=== PATIENT | female | born 1930 | race Caucasian/White ===

== ENCOUNTER 2016-08-14 09:23 | Emergency (ER) | payer OTHER ==
[~2016-08-14] VITALS: Ht 160 cm; Wt 61.2 kg
[~2016-08-14 09:23] MED LIST: ACIDOPHILUS1 CAP PO; AMOXIL500 MG PO; APAP500 MG PO; ATENOLOL25 M1 PO; AZO CRANBERRY450 MG PO; CHILDREN'S ASPI81 M1 PO; CIPRO 500MG TA500 MG PO; CIPRO500 M1 PO; IMIPRAMINE HCL25 MG PO; KEFLEX 250MG C250 MG PO; LISINOPRIL10 MG PO; MULTIVITAMIN1 TAB PO; NAPROXEN375 M2 PO; NITROFURANTOIN50 MG PO; ONDANSETRON HCL4 MG PO; PRINIVIL 5MG5 MG PO; VITAB121000 PO; VITAMIN C500 M3 PO; VITAMIN D32000 I1 PO; VOLTAREN100 GM TOP
--- NOTE | 2016-08-14 09:31 | ED GENERAL ADULT ---
History of Present Illness General Chief Complaint: Fall Stated Complaint: BIBA FALL Source: patient, family Exam Limitations: patient's age, dementia, poor historian, physical impairment Vital Signs & Intake/Output Vital Signs & Intake/Output ED Intake and Output 08/15 0000 08/14 1200 Intake Total 240 Output Total Balance 240 Intake, Oral 240 Patient 135 lb Weight Allergies Coded Allergies: tramadol (HALLUCINATIONS 08/14/16) Reconcile Medications Acetaminophen (Apap) 500 MG TABLET 1 TAB PO Q4H PRN PAIN (Reported) Acetaminophen (Tylenol) 325 MG TABLET 2 TAB PO Q6-8P PRN PAIN (Reported) Alendronate Sodium (Fosamax) 70 MG TABLET 1 TAB PO QTUES BONE (Reported) in the morning, at least 30 minutes before the first food, beverage, or medication of the day Ascorbic Acid (Vitamin C) 500 MG TAB 1 TAB PO DAILY SUPPLEMENT (Reported) Aspirin (Children's Aspirin) 81 MG TAB.CHEW 1 TAB PO DAILY HEART HEALTH ( Reported) Atenolol 25 MG TABLET 1 TAB PO DAILY HTN (Reported) CHOLECALCIFEROL (VITAMIN D3) (Vitamin D-3) 2,000 UNIT CAPSULE 1 SGL PO DAILY SUPPLEMENT (Reported) CRANBERRY CONC/C/BACILL COAG (Azo Cranberry Tablet) 250 MG-30 MG-50 MILLION CELL TABLET 1 CAP PO DAILY SUPPLEMENT (Reported) Cyanocobalamin (Vitamin B-12) 1,000 MCG TAB 1 TAB PO DAILY DEMENTIA Diclofenac Sodium (Voltaren) 1 % GEL..GRAM. 1 GM TOP 3XD-4XDAILY PRN KNEES/ SHOULDER PAIN (Reported) apply to affected area(s) Furosemide 20 MG TABLET 1 TAB PO DAILY WATER PILL (Reported) Lactobacillus Acidophilus (Acidophilus) (Unknown Strength) CAP (Unknown Dose) PO DAILY SUPPLEMENT (Reported) Lidocaine (Lidoderm) 5 % ADH..PATCH 1 PAT TOP DAILY PAIN (Reported) may wear up to 12 hours Loperamide HCl (Loperamide) 2 MG TABLET 1 CAP PO 4XDP PRN GI (Reported) Moxifloxacin HCl (Avelox) 400 MG TABLET 1 TAB PO DAILY BRONCHITIS Multivitamin (Multiple Vitamins) 1 EACH TABLET 1 TAB PO DAILY SUPPLEMENT ( Reported) Ondansetron HCl 4 MG TABLET 1 TAB PO Q8P PRN NAUSEA/VOMITING (Reported) Potassium Chloride (Klor-Con 10) 10 MEQ TABLET.ER 1 TAB PO DAILY SUPPLEMENT ( Reported) Triamcinolone Acetonide 0.025 % CREAM..G. 1 MIGDALIA TOP BID UNKNOWN (Reported) apply to affected area(s) Triage Nurses Notes Reviewed? yes Onset: Abrupt Duration: hour(s): Timing: recent history HPI: 08/14/16 10:12 AM 86-year-old female presents to the emergency department complaining of difficulty breathing. According to the assisted care staff she's been having trouble breathing over the past 24 hours. No fever. She has a past medical history of dementia and hypertension. Her daughter is at the bedside. She is pleasantly confused in no acute distress. The onset of the symptoms were abrupt , the duration has been approximately the last 12 hours, the severity is significant as her symptoms required to come to the emergency department for care. On physical exam she has bilateral expiratory wheezes. Decreased breath sounds at the bases. She also has some tenderness and mild swelling to the lower extremities Past History Medical History Any Pertinent Medical History? 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 . FATHER (bleeding ulcers). . Hx Contributory? No Review of Systems Review of Systems Constitutional: Denies: fever. EENTM: Reports: see HPI. Respiratory: Reports: cough. Cardiovascular: Denies: chest pain. GI: Reports: see HPI. Genitourinary: Reports: see HPI. Musculoskeletal: Reports: back pain. Skin: Denies: rash. Neurological/Psychological: Denies: headache. Hematologic/Endocrine: Reports: no symptoms. Physical Exam Physical Exam General Appearance: alert, awake, anxious, mild distress Head: atraumatic Eyes: Bilateral: normal appearance, PERRL, EOMI. Ears, Nose, Throat: normal pharynx, normal ENT inspection Neck: normal inspection, limited range of motion Respiratory: wheezing Cardiovascular: regular rate/rhythm Peripheral Pulses: 4+ radial (R), 4+ radial (L) Gastrointestinal: non-tender Back: decreased range of motion Extremities: pedal edema Neurologic/Psych: awake, alert Skin: intact, normal color, warm/dry Core Measures ACS in differential dx? No CVA/TIA Diagnosis: No Severe Sepsis Present: No Septic Shock Present: No Progress Differential Diagnoses I considered the following diagnoses in my evaluation of the patient: [Pneumonia , COPD, asthma, CHF, pulmonary embolism] Plan of Care: Orders Procedure Date/time Status BLOOD CULTURE 08/14 100 Active TROPONIN LEVEL 08/14 100 Complete COMPREHENSIVE METABOLIC PANEL 08/14 100 Complete CBC WITHOUT DIFFERENTIAL 08/14 1002 Complete EKG 08/14 100 Active Laboratory Tests 08/14/16 1000: Anion Gap 10, Estimated GFR > 60, BUN/Creatinine Ratio 22.9, Glucose 113 H, Calcium 9.0, Total Bilirubin 0.8, AST 44 H, ALT 33, Alkaline Phosphatase 73, Troponin I < 0.01, Total Protein 7.3, Albumin 3.7, Globulin 3.6, Albumin/ Globulin Ratio 1.0 L, CBC w Diff NO MAN DIFF REQ, RBC 4.61, MCV 92.3, MCH 30.9, RDW 13.4, MPV 10.3, Gran % 48.8, Lymphocytes % 29.9, Monocytes % 13.9 H, Eosinophils % 6.9 H, Basophils % 0.5, Absolute Granulocytes 2.5, Absolute Lymphocytes 1.5, Absolute Monocytes 0.7 H, Absolute Eosinophils 0.3, Absolute Basophils 0, PUBS MCHC 33.5 Microbiology 08/14 100 BLOOD: Blood Culture - ORD 08/14 1000 BLOOD: Blood Culture - RECD Initial ED EKG: NSR Prior EKG: unchanged Departure Departure Disposition: STILL A PATIENT Condition: Stable Clinical Impression Primary Impression: Bronchitis Referrals: GLENN PATEL,ELVIS Dos Santos (PCP/Family) Referred to [facility] as new patient No Departure Forms: Customer Survey General Discharge Information Prescriptions: Current Visit Scripts Moxifloxacin HCl (Avelox) 1 TAB PO DAILY #4 TAB Comments The patient was treated with albuterol and Atrovent nebulizers She was comfortable on reevaluation Chest x-ray was negative for pneumonia, results shown below PATIENT: JORGE L ALLRED PRESENT AGE: 86 PATIENT ACCOUNT NO: [id number] : [birth year] LOCATION: [facility] ORDERING PHYSICIAN: BENTLEY MOMIN DO SERVICE DATE: 08/14/16 EXAM TYPE: RAD - XRY-PORTABLE CHEST XRAY EXAMINATION: XR PORTABLE CHEST CLINICAL INFORMATION: Shortness of breath and cough. Evaluate for pneumonia. COMPARISON: CXR from 11/29/2014 and 12/18/2014 TECHNIQUE: Portable view of the chest was obtained. FINDINGS: Patient is slightly rotated to the right and lungs are hypoinflated. No evidence of pulmonary edema, focal consolidation or pleural effusion. Cardiac silhouette is borderline enlarged. There is a tortuous, ectatic appearing atherosclerotic aorta. Bones appear diffusely osteopenic. There are multiple old right posterolateral rib fractures. Multilevel disc degeneration with osteophyte formation of the thoracic spine. IMPRESSION: No evidence of pneumonia or pleural effusion. DICTATED BY: ZHENG TRAN MD DATE/TIME DICTATED:08/14/161331 NUT FORMER:KAY DATE/TIME TRANSCRIBED:08/14/161331 CONFIDENTIAL, DO NOT COPY WITHOUT APPROPRIATE AUTHORIZATION. <Electronically signed in Other Vendor System> SIGNED BY: ZHENG TRAN MD 08/14/16 8902 She was discharged on Avelox and will follow-up with her doctor this week Critical Care Note Critical Care Note Critical Care Time: non-applicable
[2016-08-14] MEDS ORDERED: FOSAMAX70 M1 PO (10:11)
[2016-08-14] MEDS ORDERED: LOPERAMIDE2 M1 PO (10:12)
[2016-08-14] MEDS ORDERED: KLOR-CON 1010 ME1 PO (10:13)
[2016-08-14] MEDS ORDERED: FUROSEMIDE20 M1 PO (10:13)
[2016-08-14] MEDS ORDERED: TRIAMCINOLONE A15 GM TOP (10:14)
[2016-08-14] MEDS ORDERED: LIDODERM1 EACH TOP (10:15)
[2016-08-14] MEDS ORDERED: TYLENOL325 M1 PO (10:15)
[2016-08-14 10:20] LABS: ABSOLUTE BASOPHIL COUNT 0 /CUMM (0.0-0.2); ABSOLUTE EOSINOPHIL COUNT 0.3 /CUMM (0.0-0.7); ABSOLUTE GRANULOCYTE CT 2.5 /CUMM (1.4-6.5); ABSOLUTE LYMPH COUNT 1.5 /CUMM (1.2-3.4); ABSOLUTE MONOCYTE COUNT 0.7 /CUMM (0.10-0.60); BASOPHIL % 0.5 % (0.0-2.0); EOSINOPHIL % 6.9 % (0-5); GRANULOCYTE % 48.8 % (42.2-75.2); HEMATOCRIT 42.5 % (37-47); MEAN CORPUSCULAR HGB 30.9 PG (27.0-31.0); MEAN CORPUSCULAR HGB CONC 33.5 G/DL (33.0-37.0); MEAN CORPUSCULAR VOLUME 92.3 FL (81.0-99.0); MEAN PLATELET VOLUME 10.3 FL (7.4-10.4); PLATELET COUNT 148 /CUMM (130-400); RBC DISTRIBUTION WIDTH 13.4 % (11.5-14.5); RED BLOOD CELL CT 4.61 /CUMM (4.20-5.40)
--- NOTE | 2016-08-14 10:37 | RADIOLOGY REPORT ---
EXAMINATION: XR PORTABLE CHEST CLINICAL INFORMATION: Shortness of breath. Evaluate for pneumonia. COMPARISON: Previous chest x-ray December 2014 TECHNIQUE: AP portable chest FINDINGS: The patient is significantly rotated to the right. The cardiac silhouette may be enlarged. The thoracic aorta appears slightly tortuous. There is increased density seen in the right paratracheal and hilar regions. This may be related to patient rotation. There is increased density of the right midlung. This may be related to patient rotation as well. It is difficult to exclude a central right pneumonia. The left lung is clear. There is no pleural effusion or pneumothorax. IMPRESSION: Limited exam due to patient rotation to the right. Repeat chest x-ray recommended.
--- NOTE | 2016-08-14 13:38 | RADIOLOGY REPORT ---
EXAMINATION: XR PORTABLE CHEST CLINICAL INFORMATION: Shortness of breath and cough. Evaluate for pneumonia. COMPARISON: CXR from 11/29/2014 and 12/18/2014 TECHNIQUE: Portable view of the chest was obtained. FINDINGS: Patient is slightly rotated to the right and lungs are hypoinflated. No evidence of pulmonary edema, focal consolidation or pleural effusion. Cardiac silhouette is borderline enlarged. There is a tortuous, ectatic appearing atherosclerotic aorta. Bones appear diffusely osteopenic. There are multiple old right posterolateral rib fractures. Multilevel disc degeneration with osteophyte formation of the thoracic spine. IMPRESSION: No evidence of pneumonia or pleural effusion.
[2016-08-14] MEDS ORDERED: AVELOX400 M1 PO (14:10)
[2016-08-14 14:37] VITALS: BP 110/64
== END 2016-08-14 14:38 ==
LOC: ERH 09:23
PROVIDERS: Emergency Medicine
DX: J40 Bronchitis, not specified as acute or chronic (principal)
CPT/HCPCS: 1263; 87040; 87804; 87804-59; 93005; 93010

== ENCOUNTER 2016-12-08 06:46 | Emergency (ER) | payer OTHER ==
[~2016-12-08] VITALS: Ht 152.4 cm; Wt 65.8 kg
[~2016-12-08 06:46] MED LIST changes: +AVELOX400 M1 PO; +FOSAMAX70 M1 PO; +FUROSEMIDE20 M1 PO; +KLOR-CON 1010 ME1 PO; +LIDODERM1 EACH TOP; +LOPERAMIDE2 M1 PO; +TRIAMCINOLONE A15 GM TOP; +TYLENOL325 M1 PO
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
[2016-12-08 08:34] VITALS: BP 189/74
--- NOTE | 2016-12-08 08:38 | RADIOLOGY REPORT ---
EXAMINATION: XR SHOULDER, LEFT CLINICAL INFORMATION: Left shoulder pain status post fall from bed. COMPARISON: None TECHNIQUE: Three views of the left shoulder. FINDINGS: Bone mineral density is diffusely decreased without evidence of fracture or dislocation. No focal osseous lesions are seen. There are moderate degenerative changes in the acromioclavicular joint with downward sloping acromion with inferior spurring which can predispose to impingement. IMPRESSION: No fracture or dislocation.
--- NOTE | 2016-12-08 08:39 | RADIOLOGY REPORT ---
EXAMINATION: XR KNEE, BILATERAL CLINICAL INFORMATION: Pain status post fall from bed COMPARISON: None TECHNIQUE: Four views of the bilateral knees. FINDINGS: Bone mineral density is diffusely decreased without evidence of fracture or dislocation. No focal osseous lesions are seen. There is tricompartmental joint space narrowing with small marginal osteophytes. No significant joint effusions are seen. IMPRESSION: Osteopenia, degenerative changes, no fractures.
== END 2016-12-08 09:23 ==
LOC: ERH 06:46
DX: S43.402A Unspecified sprain of left shoulder joint, initial encounter (principal); S83.91XA Sprain of unspecified site of right knee, initial encounter; S83.92XA Sprain of unspecified site of left knee, initial encounter; W06.XXXA Fall from bed, initial encounter; Y92.122 Bedroom in nursing home as the place of occurrence of the external cause; Y93.9 Activity, unspecified
CPT/HCPCS: 73030-LT; 73564-50

== ENCOUNTER 2017-01-31 11:51 | Emergency (ER) | payer OTHER ==
[~2017-01-31] VITALS: Ht 152.4 cm; Wt 68.0 kg
--- NOTE | 2017-01-31 12:15 | ED MVC/FALL/TRAUMA COMPLAINT ---
See Addendum History of Present Illness General Chief Complaint: Fall Stated Complaint: BIBA FOR FALL, LEFT ARM PAIN Source: patient, old records, EMS Exam Limitations: dementia, poor historian Vital Signs & Intake/Output Vital Signs & Intake/Output Vital Signs Date Time Temp Pulse Resp B/P B/P Pulse O2 O2 Flow FiO2 Mean Ox Delivery Rate 02/01 2041 96.6 64 16 125/60 97 Room Air 02/01 1701 97.5 55 18 161/72 98 02/01 1309 97.5 68 18 148/62 95 02/01 1043 96.3 67 18 133/65 02/01 1012 96.3 67 18 133/65 96 Room Air 02/01 0631 97.4 63 16 152/68 98 02/01 0347 97.1 66 17 130/62 97 Room Air Allergies Coded Allergies: tramadol (HALLUCINATIONS 08/14/16) Reconcile Medications Alendronate Sodium (Fosamax) 70 MG TABLET 1 TAB PO QTUES BONE (Reported) in the morning, at least 30 minutes before the first food, beverage, or medication of the day Aspirin (Children's Aspirin) 81 MG TAB.CHEW 1 TAB PO DAILY HEART HEALTH ( Reported) Atenolol 25 MG TABLET 1 TAB PO DAILY HTN (Reported) Diclofenac Sodium (Voltaren) 1 % GEL..GRAM. 1 GM TOP 4 TIMES/DAY PRN PAIN ( Reported) apply to affected area(s) Furosemide 20 MG TABLET 1 TAB PO DAILY WATER PILL (Reported) Lidocaine (Lidoderm) 5 % ADH..PATCH 1 PAT TOP DAILY PAIN (Reported) may wear up to 12 hours Loperamide HCl (Loperamide) 2 MG TABLET 1 CAP PO 4XDP PRN GI (Reported) Ondansetron HCl 4 MG TABLET 1 TAB PO Q8P PRN NAUSEA/VOMITING (Reported) Potassium Chloride (Klor-Con 10) 10 MEQ TABLET.ER 1 TAB PO DAILY SUPPLEMENT ( Reported) Triamcinolone Acetonide 0.025 % CREAM..G. 1 MIGDALIA TOP BID UNKNOWN (Reported) apply to affected area(s) Triage Nurses Notes Reviewed? yes Onset: Abrupt Duration: hour(s): (12), constant, continues in ED, getting worse Timing: single episode today Severity: mild, moderate Severity Numbers: 7 Injuries/Fall Location: lower extremity (LEFT HIP) Method of Injury: fall Loss of Consciousness: no loss of consciousness No Modifying Factors: none Associated Symptoms: shortness of breath LMP (ages 10-50): post menopausal : No Patient currently breastfeeds: No HPI: 86-year-old female with a past medical history of dementia brought in by ambulance for evaluation after a fall. EMS reports that patient had slid out of her recliner and landed on the floor and could not get up. She did not hit her head or lose consciousness. When she was evaluated initially patient was reporting pain in her left hip and also reported shortness of breath. Patient lives in a assisted living facility and the facility feels as though she requires a higher level of care due to progressive dementia. Currently patient is reporting pain in her left hip that is worse with any type of movement and palpation. She rates the pain as a 7 out of 10 that does not radiate. Patient currently denies any shortness of breath however she did reported on the scene to EMS. Patient is confused and is not able to provide an accurate history of exactly what happened. She does have a history of multiple falls in the past. Currently she denies chest pain, hemoptysis, fever, abdominal pain, nausea, vomiting, knee pain, ankle pain, back pain or any other associated symptoms. (WENDIE SHAVER PA-C) Past History Travel History Traveled to [place] past 21 day No Medical History Any Pertinent Medical History? 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 . FATHER (bleeding ulcers). . Hx Contributory? Yes (WENDIE SHAVER PA-C) Review of Systems Review of Systems Constitutional: Reports: no symptoms. Eyes: Reports: no symptoms. Ears, Nose, Throat, Mouth: Reports: no symptoms. Respiratory: Reports: see HPI. Cardiovascular: Reports: no symptoms. Gastrointestinal/Abdominal: Reports: no symptoms. Genitourinary: Reports: no symptoms. Musculoskeletal: Reports: see HPI, joint pain (LEFT HIP). Skin: Reports: no symptoms. Neurological/Psychological: Reports: no symptoms. All Other Systems: Reviewed and Negative (CHHAYA ARGUETA,WENDIE) Physical Exam Physical Exam General Appearance: well developed/nourished, no apparent distress, alert, awake , anxious Head: atraumatic, normal appearance Eyes: Bilateral: normal appearance, PERRL, EOMI, normal inspection. Ears, Nose, Throat, Mouth: hearing grossly normal, moist mucous membrane, Tympanic normal Neck: normal inspection, supple, full range of motion, normal alignment Respiratory: normal breath sounds, chest non-tender, no respiratory distress, lungs clear Cardiovascular: regular rate/rhythm, normal peripheral pulses Peripheral Pulses: 2+ dorsalis pedis (R), 2+ dorsalis pedis (L) Gastrointestinal: normal bowel sounds, soft, non-tender Back: normal inspection, normal range of motion, no vertebral tenderness Extremities: evidence of injury (LEFT HIP SWELLING), limited range of motion ( LEFT HIP) Neurologic/Psych: no motor/sensory deficits, awake, alert, oriented x 3, normal mood/affect, PT IS UNABLE TO WALK WITH JONELLE ASSIST OF A WALKER. SHE IS ABLE TO BEAR WEIGHT ON THE LEFT HIP Skin: intact, normal color, warm/dry Core Measures ACS in differential dx? No Severe Sepsis Present: No Septic Shock Present: No (CHHAYA ARGUETA,WENDIE) Progress Differential Diagnosis: C/T/L spine injury, ext injury, ICH, pelvis injury, spinal cord injury, LEFT HIP FRACTURE, CHF, ACS Plan of Care: Orders Procedure Date/time Status Theraputic Activities 15 Min 02/01 UNK Complete Therapeutic Exercise X 15 02/01 UNK Complete Current Medications Sig/Cha Start time Last Medication Dose Stop Time Status Admin Furosemide 20 MG DAILY 02/01 1247 UNVr 02/01 (Lasix) 1257 Atenolol 25 MG DAILY 02/01 1000 UNVr 02/01 (Tenormin) 1043 12:33 PM patient seen and evaluated. Patient will have an x-ray of her left hip to rule out fracture. After hip fracture is ruled out we will attempt to walk the patient and consult physical therapy. Patient is unable to ambulate she may need a higher level of care than the Because of her reporting shortness of breath and having dementia she will also have a full workup to ensure there is no other cause of shortness of breath. His blood work ordered including d-dimer BNP troponin. Also EKG and chest x-ray. Because patient has baseline confusion and the fall was unwitnessed she will also have a head CT to rule out a bleed. We'll follow up on results. We'll also have to involve case management in determining her placement after workup is completed. 2:01 PM: Patient was unable to ambulate on her own. Physical therapy consult ordered. Patient will likely need to be placed in a higher level of care due to both her physical inability to walk as well as worsening dementia. All labs are within normal limits and imaging does not show any acute changes. D-dimer is 439 but clinical suspicion for PE is low and based on age adjusted d-dimer reference range this d-dimer is negative for PE. Pt is medically cleared and is awaiting placement in a higher level care facility. Reviewed all results with patient and family and discussed plan of care with patient and family and they all agree with the plan. Patient will be kept in the emergency department until proper placement is determined. Case discussed with Dr. Davis and Dr. Mohan and they both agree with the plan. (CHHAYA ARGUETA,WENDIE) Diagnostic Imaging: Viewed by Me: Radiology Read, CT Scan. Initial ED EKG: NORMAL SINUS RHYTHM, NO st OR T WAVE CHANGES Prior EKG: unchanged Hand-Off Endorsed To: JESSICA PATEL,PIEDAD Regalado Endorsed Time: 2328 Pending: other (rehab placement) Comments: PATIENT: JORGE L ALLRED PRESENT AGE: 86 PATIENT ACCOUNT NO: [id number] : [birth year] LOCATION: [facility] ORDERING PHYSICIAN: WENDIE SHAVER PA-C SERVICE DATE: 01/31/17 EXAM TYPE: RAD - XRY-HIP 2-3 VIEWS, LEFT EXAMINATION: XR HIP, LEFT CLINICAL INFORMATION: Left hip pain after fall. COMPARISON: 04/27/2016 TECHNIQUE: Two views of the left hip. FINDINGS: Bone density is diffusely decreased. The left femoral head is well-positioned within the intact acetabulum. There is no evidence of pubic ramus fracture or proximal femoral fracture. The femoroacetabular joint space is maintained. There is soft tissue swelling of subcutaneous tissues lateral to the level of the greater trochanter and, in the setting of recent trauma, this could represent a hematoma. IMPRESSION: 1. No acute fracture or malalignment at the left hip. 2. Soft tissue swelling lateral to the hip could represent post traumatic hematoma. DICTATED BY: ZHENG TRAN MD DATE/TIME DICTATED:01/31/171332 METAL FORGER'S ASSISTANT:CRUZ DATE/TIME TRANSCRIBED:01/31/171332 CONFIDENTIAL, DO NOT COPY WITHOUT APPROPRIATE AUTHORIZATION. <Electronically signed in Other Vendor System> SIGNED BY: ZHENG TRAN MD 01/31/171338 PATIENT: JORGE L ALLRED PRESENT AGE: 86 PATIENT ACCOUNT NO: [id number] : [birth year] LOCATION: [facility] ORDERING PHYSICIAN: WENDIE SHAVER PA-C SERVICE DATE: 01/31/17 EXAM TYPE: CAT - CT HEAD WO IV CONTRAST EXAMINATION: CT HEAD WITHOUT CONTRAST CLINICAL INFORMATION: Possible head trauma. Fall. COMPARISON: CT head 11/29/2014. TECHNIQUE: Contiguous axial imaging was performed from the skull base to vertex without intravenous administration of contrast. DLP: 623.08 mGy-cm FINDINGS: There is no acute intracranial hemorrhage or abnormal extra-axial collection. No intracranial mass effect or midline shift. Lateral and third ventricles are proportionate to the subarachnoid spaces. No hydrocephalus. There is hypoattenuation throughout the periventricular white matter that most likely represents a chronic manifestation of small vessel ischemia. Law-white matter differentiation is otherwise preserved and there is no evidence of acute territorial infarct. The calvarium and skull base are intact. Mastoid air cells and middle ear cavities are well aerated. Visualized paranasal sinuses are well aerated. IMPRESSION: There are chronic small vessel ischemic changes within the periventricular white matter. No evidence of acute territorial infarct or hemorrhage. DICTATED BY: LILIBETH GONZALES MD DATE/TIME DICTATED:01/31/171403 METAL FORGER'S ASSISTANT:CRUZ DATE/TIME TRANSCRIBED:01/31/171403 CONFIDENTIAL, DO NOT COPY WITHOUT APPROPRIATE AUTHORIZATION. <Electronically signed in Other Vendor System> SIGNED BY: LILIBETH GONZALES MD 01/31 1418 PATIENT: JORGE L ALLRED PRESENT AGE: 86 PATIENT ACCOUNT NO: [id number] : [birth year] LOCATION: [facility] ORDERING PHYSICIAN: WENDIE SHAVER PA-C SERVICE DATE: 01/31/171224 EXAM TYPE: RAD - XRY-CHEST XRAY, PA AND LATERAL EXAMINATION: XR CHEST CLINICAL INFORMATION: History of fall with altered mental status. Evaluate for congestive heart failure and pneumonia. COMPARISON: CXR from 08/14/2016 TECHNIQUE: 2 views of the chest were obtained. FINDINGS: Lungs are hypoexpanded resulting in crowding of bronchovascular structures in the mid and lower lung zones. No focal airspace opacification or overt interstitial pulmonary edema. No pneumothorax or pleural effusion. Patient is slightly rotated to the right. The enlarged cardiomediastinal silhouette has stable size and configuration. The atherosclerotic aorta appears chronically dilated. Bone density is diffusely decreased and there are multiple old rib fractures. There is likely an old anterior compression fracture of the T7 vertebral body which exhibits 40% anterior height loss. There is an old anterior compression fracture of T12, unchanged compared to 04/27/2016. No acute findings in the examined, degenerated spine. IMPRESSION: 1. Cardiomegaly without pulmonary edema. 2. Lungs are suboptimally evaluated due to the degree of hypoinflation. No overt pneumonia. 3. Bones appear diffusely osteoporotic and there are old rib fractures and old vertebral fractures. DICTATED BY: ZHENG TRAN MD DATE/TIME DICTATED:01/31/171335 METAL FORGER'S ASSISTANT:KAY DATE/TIME TRANSCRIBED:01/31/171335 CONFIDENTIAL, DO NOT COPY WITHOUT APPROPRIATE AUTHORIZATION. <Electronically signed in Other Vendor System> SIGNED BY: ZHENG TRAN MD 01/31/17 13 (WENDIE SHAVER PA-C) Hand-Off Endorsed To: TAN BEAVERS MD Endorsed Time: 1899 Pending: other (CICI PATEL,KEYA Crowder) Departure Departure Disposition: STILL A PATIENT Condition: Stable Clinical Impression Primary Impression: Left hip pain Secondary Impressions: Frequent falls Referrals: GLENN PATEL,ELVIS Dos Santos (PCP/Family) Departure Forms: Customer Survey General Discharge Information (WENDIE SHAVER PA-C) PA/BUMPER AND PAINTER Co-Sign Statement Statement: ED Attending supervision documentation- x I saw and evaluated the patient. I have also reviewed all the pertinent lab results and diagnostic results. I agree with the findings and the plan of care as documented in the PA's/BUMPER AND PAINTER's documentation. [] I have reviewed the ED Record and agree with the PA's/BUMPER AND PAINTER's documentation. [] Additions or exceptions (if any) to the PAs/BUMPER AND PAINTER's note and plan are summarized below: [] (TAN BEAVERS MD) Departure Departure Disposition: STILL A PATIENT Condition: Stable Clinical Impression Primary Impression: Left hip pain Secondary Impressions: Frequent falls Referrals: GLENN PATEL,ELVIS Dos Santos (PCP/Family) Departure Forms: Customer Survey General Discharge Information (WENDIE SHAVER PA-C) PA/BUMPER AND PAINTER Co-Sign Statement Statement: ED Attending supervision documentation- x I saw and evaluated the patient. I have also reviewed all the pertinent lab results and diagnostic results. I agree with the findings and the plan of care as documented in the PA's/BUMPER AND PAINTER's documentation. [] I have reviewed the ED Record and agree with the PA's/BUMPER AND PAINTER's documentation. [] Additions or exceptions (if any) to the PAs/BUMPER AND PAINTER's note and plan are summarized below: [] (TAN BEAVERS MD)
--- NOTE | 2017-01-31 13:39 | RADIOLOGY REPORT ---
EXAMINATION: XR HIP, LEFT CLINICAL INFORMATION: Left hip pain after fall. COMPARISON: 04/27/2016 TECHNIQUE: Two views of the left hip. FINDINGS: Bone density is diffusely decreased. The left femoral head is well-positioned within the intact acetabulum. There is no evidence of pubic ramus fracture or proximal femoral fracture. The femoroacetabular joint space is maintained. There is soft tissue swelling of subcutaneous tissues lateral to the level of the greater trochanter and, in the setting of recent trauma, this could represent a hematoma. IMPRESSION: 1. No acute fracture or malalignment at the left hip. 2. Soft tissue swelling lateral to the hip could represent post traumatic hematoma.
--- NOTE | 2017-01-31 13:44 | RADIOLOGY REPORT ---
EXAMINATION: XR CHEST CLINICAL INFORMATION: History of fall with altered mental status. Evaluate for congestive heart failure and pneumonia. COMPARISON: CXR from 08/14/2016 TECHNIQUE: 2 views of the chest were obtained. FINDINGS: Lungs are hypoexpanded resulting in crowding of bronchovascular structures in the mid and lower lung zones. No focal airspace opacification or overt interstitial pulmonary edema. No pneumothorax or pleural effusion. Patient is slightly rotated to the right. The enlarged cardiomediastinal silhouette has stable size and configuration. The atherosclerotic aorta appears chronically dilated. Bone density is diffusely decreased and there are multiple old rib fractures. There is likely an old anterior compression fracture of the T7 vertebral body which exhibits 40% anterior height loss. There is an old anterior compression fracture of T12, unchanged compared to 04/27/2016. No acute findings in the examined, degenerated spine. IMPRESSION: 1. Cardiomegaly without pulmonary edema. 2. Lungs are suboptimally evaluated due to the degree of hypoinflation. No overt pneumonia. 3. Bones appear diffusely osteoporotic and there are old rib fractures and old vertebral fractures.
[2017-01-31 13:48] LABS: ABSOLUTE BASOPHIL COUNT 0 /CUMM (0.0-0.2); ABSOLUTE EOSINOPHIL COUNT 0.3 /CUMM (0.0-0.7); ABSOLUTE GRANULOCYTE CT 3.3 /CUMM (1.4-6.5); ABSOLUTE LYMPH COUNT 1.7 /CUMM (1.2-3.4); ABSOLUTE MONOCYTE COUNT 0.6 /CUMM (0.10-0.60); BASOPHIL % 0.4 % (0.0-2.0); EOSINOPHIL % 4.7 % (0-5); GRANULOCYTE % 55.7 % (42.2-75.2); HEMATOCRIT 45.2 % (37-47); MEAN CORPUSCULAR HGB 30.2 PG (27.0-31.0); MEAN CORPUSCULAR HGB CONC 32.9 G/DL (33.0-37.0); MEAN CORPUSCULAR VOLUME 91.9 FL (81.0-99.0); MEAN PLATELET VOLUME 9.7 FL (7.4-10.4); PLATELET COUNT 174 /CUMM (130-400); RBC DISTRIBUTION WIDTH 13.5 % (11.5-14.5); RED BLOOD CELL CT 4.92 /CUMM (4.20-5.40); WHITE BLOOD CELL COUNT 5.9 /CUMM (4.8-10.8)
--- NOTE | 2017-01-31 14:18 | CT SCAN REPORT ---
EXAMINATION: CT HEAD WITHOUT CONTRAST CLINICAL INFORMATION: Possible head trauma. Fall. COMPARISON: CT head 11/29/2014. TECHNIQUE: Contiguous axial imaging was performed from the skull base to vertex without intravenous administration of contrast. DLP: 623.08 mGy-cm FINDINGS: There is no acute intracranial hemorrhage or abnormal extra-axial collection. No intracranial mass effect or midline shift. Lateral and third ventricles are proportionate to the subarachnoid spaces. No hydrocephalus. There is hypoattenuation throughout the periventricular white matter that most likely represents a chronic manifestation of small vessel ischemia. Law-white matter differentiation is otherwise preserved and there is no evidence of acute territorial infarct. The calvarium and skull base are intact. Mastoid air cells and middle ear cavities are well aerated. Visualized paranasal sinuses are well aerated. IMPRESSION: There are chronic small vessel ischemic changes within the periventricular white matter. No evidence of acute territorial infarct or hemorrhage.
[2017-02-02 13:33] VITALS: BP 119/58
== END 2017-02-02 15:29 | disposition still patient (30) ==
LOC: ERH 11:51
PROVIDERS: Physician Assistant Medical
DX: M25.552 Pain in left hip (principal); R29.6 Repeated falls; R06.02 Shortness of breath; I10 Essential (primary) hypertension; F03.90 Unspecified dementia, unspecified severity, without behavioral disturbance, psychotic disturbance, mood disturbance, and anxiety
CPT/HCPCS: 73502-LT; 81001; 87086; 93005; 93010; 97110-GP; 97161-GP; 97530-GP